=== PATIENT | male | born 1930 | race Caucasian/White ===

== ENCOUNTER 2017-09-03 13:35 | Inpatient (IN) | payer OTHER ==
[2017-09-03] MEDS ORDERED: ONDANSETRON 4 MG/2 ML VIAL ONE (14:04)
[2017-09-03] MEDS ORDERED: ONDANSETRON 4 MG/2 ML VIAL IVPUSH ONE (14:23)
[2017-09-03] MEDS ORDERED: SODIUM CHLORIDE 1,000 ML IV STA (14:23)
[2017-09-03] MEDS ORDERED: DIPHTH,PERTUSS(ACELL),TET 0.5 ML DISP.SYRIN IM ONE (14:25)
[2017-09-03] MEDS ORDERED: morphine CARPU-JECT 2 MG/1 ML DISP.SYRIN IVPUSH ONE (14:32)
[2017-09-03] MEDS ORDERED: morphine CARPU-JECT 10 MG/1 ML DISP.SYRIN ONE (14:35)
--- NOTE | 2017-09-03 14:38 | PDOC ---
History of Present Illness - General Chief Complaint: Injury Stated Complaint: FELL Time Seen by Provider: 09/03/17 13:45 History Source: Patient Exam Limitations: No Limitations - History of Present Illness Initial Comments: 09/03/17 14:33 87-year-old male presents to the ED status post mechanical fall. Patient states was carrying items up wooden steps in his basement when he lost his balance going causing him to fall backwards landing on his left side. Patient states had no LOC but was unable to get up secondary to pain in his left hip. Patient states pulled himself up the steps and called 911. Patient states is on baby aspirin and denies LOC after incident. Patient states also on a beta luis armando which he took this morning. Patient refused morphine in the field and had a BGM of 142. Occurred: reports: just prior to arrival Severity: reports: moderate, severe Pain Location: reports: face, head, lower extremity, upper extremity Method of Injury: Yes: fall Loss of Consciousness: no loss of consciousness Associated Symptoms (Fall): headache, trouble walking Past History - Travel Traveled outside of the country in the last 30 days: No - Past Medical History Allergies/Adverse Reactions: Allergies Allergy/AdvReac Type Severity Reaction Status Date / Time ciprofloxacin [From Cipro] Allergy Severe Swelling Verified 09/03/17 14:00 sulfamethoxazole Allergy Severe Swelling Verified 09/03/17 14:00 [From Bactrim] trimethoprim [From Bactrim] Allergy Severe Swelling Verified 09/03/17 14:00 Home Medications: Ambulatory Orders Amlodipine Besylate 5 mg PO BID 09/03/17 Aspirin 81 mg PO DAILY 09/03/17 Atorvastatin Ca [Lipitor] 40 mg PO HS 09/03/17 Furosemide 20 mg PO BID 09/03/17 Losartan Potassium 50 mg PO BID 09/03/17 Metformin HCl [Metformin HCl ER] 1,000 mg PO BID 09/03/17 Metoprolol Succinate 50 mg PO DAILY 09/03/17 COPD: No Diabetes: Yes HTN: Yes Hypercholesterolemia: Yes - Surgical History Appendectomy: Yes Orthopedic Surgery: Yes (rt hip fx) - Suicide/Smoking/Psychosocial Hx Smoking History: Former smoker Have you smoked in the past 12 months: No If you are a former smoker, when did you quit?: 40 YEARS AGO Information on smoking cessation initiated: No Hx Alcohol Use: No Drug/Substance Use Hx: No Patient Lives Alone: Yes Lives with/in: lives alone Review of Systems - Review of Systems Able to Perform ROS?: Yes Constitutional: No: Symptoms Reported HEENTM: Yes: Symptoms Reported, Eye Pain (left ) Respiratory: No: Symptoms reported Cardiac (ROS): No: Symptoms Reported : No: Symptoms Reported Musculoskeletal: Yes: Joint Pain (left wrist and 1st left finger. left hip). No : Back Pain Integumentary: Yes: Bruising, Erythema, Lumps (left eyebrow) Hematologic/Lymphatic: Yes: See HPI (on baby asa) *Physical Exam - Vital Signs Last Vital Signs Temp Pulse Resp BP Pulse Ox 97.2 F L 61 20 96/57 97 09/03/17 14:00 09/03/17 14:00 09/03/17 14:00 09/03/17 14:00 09/03/17 14:00 - Physical Exam General Appearance: Yes: Nourished, Appropriately Dressed. No: Apparent Distress HEENT: positive: EOMI, SAURAV. negative: Pale Conjunctivae Neck: positive: Supple Respiratory/Chest: positive: Chest Tender (left ribs 2nd-8th), Lungs Clear, Normal Breath Sounds. negative: Respiratory Distress, Accessory Muscle Use Cardiovascular: positive: Regular Rhythm, Regular Rate (nsr 62). negative: Murmur Gastrointestinal/Abdominal: positive: Soft. negative: Tenderness Musculoskeletal: negative: CVA Tenderness, Vertebral Tenderness Extremity: positive: Normal Capillary Refill, Tender (over lateral aspect of left hip/ proximal femur). negative: Normal Inspection (unable to move lle) Integumentary: positive: Swelling, Ecchymosis (noted large hematoma over left eyebrow with full closure of left upper eyelid. 2), Other (2 cm linear lac below lateral aspect of left eyebrow) Neurologic: positive: Normal Mood/Affect Procedures - Laceration/Wound Repair Left Eye Wound Length: to 2.5 cm Wound Explored: clean Wound's Depth, Shape: superficial, linear Irrigated w/ Saline: Yes Betadine Prep: Yes Wound Repaired With: Dermabond ED Treatment Course - LABORATORY CBC & Chemistry Diagram: 09/03/17 14:30 09/03/17 14:30 - RADIOLOGY Radiology Studies Ordered: Category Date Time Status CERVICAL SPINE CT W/O CONTR [CT] Stat CT Scan 09/03/17 14:[address] W/O CONTRAST [CT] Stat CT Scan 09/03/17 14:[address] WITHOUT CONTRAST [CT] Stat CT Scan 09/03/17 14:23 Ordered CHEST X-RAY PORTABLE* [RAD] Stat Radiology 09/03/17 14:23 Ordered HIP & PELVIS-LEFT [RAD] Stat Radiology 09/03/17 14:25 Ordered RIBS-LEFT SIDE [RAD] Stat Radiology 09/03/17 14:24 Ordered WRIST W/HAND-LEFT* [RAD] Stat Radiology 09/03/17 14:24 Ordered Medical Decision Making - Medical Decision Making 09/03/17 14:43 Pt s/p mechanical fall. Pt with mu;ltiple injuries ( left ribs, left wrist, left eyebrow, and left hip ) . Labs. xrays, and facial, head, and cervical ct ordered. Pt ordered for zofran 4mg ivp for nausea. Pt requesting analgesic. 2 mg mso4 ordered. 09/03/17 15:27 Patient on pelvic x-ray shows a left pubic rami fracture. Patient to be added for non- contrast pelvic CT. 09/03/17 15:29 Rib x-ray shows no signs of gross fracture, pneumothorax, pleural fluid or infiltrate. X-ray of the hand and wrist shows previous distal radial and ulnar surgery. Loss of bone density. Osteoarthritic and erosive arthritic changes noted. No acute fracture visualized. Chest x-ray negative for acute findings. 09/03/17 15:29 Laboratory Tests 09/03/17 09/03/17 14:30 14:30 WBC 14.1 H Hgb 12.4 Hct 39.1 Plt Count 176 Neutrophils % 88.2 H Lymphocytes % 5.6 L Monocytes % 4.5 Eosinophils % 1.1 Basophils % 0.6 PT with INR 12.20 H INR 1.08 09/03/17 16:59 Laboratory Tests 09/03/17 14:30 BUN 52 H Creatinine 2.8 H Random Glucose 137 H Calcium 8.4 L Creatine Kinase 513 H Troponin I < 0.02 Total Protein 5.7 L Albumin 3.4 Patient with normal saline infusing. Laceration repair completed with Dermabond without difficulty. BGM ordered since patient states feels slightly weak 09/03/17 17:03 Laboratory Tests 09/03/17 14:30 Creatine Kinase 513 H Creatine Kinase Index 2.2 CK-MB (CK-2) 11.690 H Troponin I < 0.02 09/03/17 17:37 Laboratory Tests 09/03/17 17:04 POC Glucometer 108.45375 09/03/17 18:17 Laboratory Tests 09/03/17 15:32 Lactic Acid 2.3 H* Elevated lactic acid and white count may be reactive secondary to the injury blood cultures were sent. awaiting urine. Patient states his creatinine level has increased since he has doubled up his Lasix in order to decrease his blood pressure. Spoke to Dr. Porter who was in the hospital will come down shortly to evaluate patient. *DC/Admit/Observation/Transfer Diagnosis at time of Disposition: Pelvic fracture - Discharge Dispostion Admit: Yes - Referrals Referrals: STAFF,NOT ON [Primary Care Provider] - - Patient Instructions - Post Discharge Activity
[2017-09-03 14:41] LABS: BASO % 0.6 % (0-2.0); EOS % 1.1 % (0-4.5); HEMATOCRIT 39.1 % (35.4-49); HEMOGLOBIN 12.4 GM/dL (11.7-16.9); LYMPH % 5.6 % (8-40); MCH 28.7 pg (25.7-33.7); MCHC 31.8 g/dl (32.0-35.9); MEAN CELL VOLUME 90.5 fl (80-96); MEAN PLT VOLUME 7.8 fl (7.5-11.1); MONO % 4.5 % (3.8-10.2); NEUT % 88.2 % (42.8-82.8); PLATELET COUNT 176 K/MM3 (134-434); RBC 4.32 M/mm3 (4.00-5.60); WHITE BLOOD COUNT 14.1 K/mm3 (4.0-10.0)
[2017-09-03 15:07] LABS: ALBUMIN 3.4 g/dl (3.4-5.0); ANION GAP 13 (8-16); BILIRUBIN,TOTAL 0.6 mg/dL (0.2-1.0); BLOOD UREA NITROGEN 52 mg/dL (7-18); CALCIUM 8.4 mg/dL (8.5-10.1); CHLORIDE 107 mmol/L (98-107); CO2 23 mmol/L (21-32); CREATININE 2.8 mg/dL (0.7-1.3); GLUCOSE,RANDOM 137 mg/dL (74-106); POTASSIUM 4.5 mmol/L (3.5-5.1); SGOT/AST 32 U/L (15-37); SGPT/ALT 29 U/L (12-78); SODIUM 143 mmol/L (136-145); TOT PROT 5.7 g/dl (6.4-8.2)
[2017-09-03 15:08] LABS: INR 1.08 (0.82-1.09); PROTHROMBIN TIME (PATIENT) 12.2 SEC (9.98-11.88)
[2017-09-03 15:09] LABS: ALK PHOS 64 U/L (45-117)
--- NOTE | 2017-09-03 17:52 | HP ---
Admitting History and Physical - Admission History of Present Illness: This is an 87 year old male with HTN, HLD, DM, diabetic nephropathy presented to the ED following mechanical fall. Pt lost balance as he was walking up the stairs from his basement and landed backward on his left side. He did hit his L eye sustaining hematoma and swelling, and lacerations. He did not sustain any orbital fractures nor has an visual disturbances. PT was unable to get up due to left hip pain and called 911. Currently, he denies chest pain, palpitations, sob, urinary or bowel issues, abdominal pain, n/v. He does endorse urinary incontinence. History Source: Patient Limitations to Obtaining History: No Limitations - Past Medical History Cardiovascular: Yes: HTN, Hyperlipdemia Endocrine: Yes: Diabetes Mellitus - Past Surgical History Past Surgical History: Yes: Laminectomy (x4, 4 years ago), Prostatectomy (10-12 years ago) - Smoking History Smoking history: Former smoker Have you smoked in the past 12 months: No If you are a former smoker, when did you quit?: 40 YEARS AGO - Alcohol/Substance Use Hx Alcohol Use: No - Social History Usual Living Arrangement: Yes: Alone ADL: Independent Occupation: semi retired doctor History of Recent Travel: No Home Medications - Allergies Allergies/Adverse Reactions: Allergies Allergy/AdvReac Type Severity Reaction Status Date / Time ciprofloxacin [From Cipro] Allergy Severe Swelling Verified 09/03/17 14:00 sulfamethoxazole Allergy Severe Swelling Verified 09/03/17 14:00 [From Bactrim] trimethoprim [From Bactrim] Allergy Severe Swelling Verified 09/03/17 14:00 - Home Medications Home Medications: Ambulatory Orders Amlodipine Besylate 5 mg PO BID 09/03/17 Aspirin 81 mg PO DAILY 09/03/17 Atorvastatin Ca [Lipitor] 40 mg PO HS 09/03/17 Furosemide 20 mg PO BID 09/03/17 Losartan Potassium 50 mg PO BID 09/03/17 Metformin HCl [Metformin HCl ER] 1,000 mg PO BID 09/03/17 Metoprolol Succinate 50 mg PO DAILY 09/03/17 Review of Systems - Review of Systems Constitutional: reports: No Symptoms Eyes: reports: No Symptoms HENT: reports: No Symptoms Neck: reports: No Symptoms Cardiovascular: reports: No Symptoms Respiratory: reports: No Symptoms Gastrointestinal: reports: No Symptoms Genitourinary: reports: No Symptoms Musculoskeletal: reports: Extremity Pain (left pelvis) Integumentary: reports: Bruising (left eye) Neurological: reports: No Symptoms Endocrine: reports: No Symptoms Hematology/Lymphatic: reports: No Symptoms Psychiatric: reports: No Symptoms Physical Examination Vital Signs: Vital Signs Temperature 97.2 F L 09/03/17 14:00 Pulse Rate 73 09/03/17 16:37 Respiratory Rate 20 09/03/17 16:37 Blood Pressure 111/70 09/03/17 16:37 O2 Sat by Pulse Oximetry (%) 97 09/03/17 16:37 Constitutional: Yes: Well Nourished Eyes: Yes: EOM Intact (r and left eye), PERRL (r and left eye), Other (Left eye eccymosis, hematoma, swelling, forehead laceration no bleeding, dermabond) Neck: Yes: Supple Cardiovascular: Yes: Regular Rate and Rhythm, S1, S2 Respiratory: Yes: Regular, CTA Bilaterally Gastrointestinal: Yes: Normal Bowel Sounds, Soft Renal/: Yes: Incontinence Musculoskeletal: Yes: Other (L pelvic tenderness to palpation) Edema: No Integumentary: Yes: Bruising, Erythema Neurological: Yes: Alert, Oriented, Cran Nerves II-XII Intact Psychiatric: Yes: Alert, Oriented Labs: CBC, BMP 09/03/17 14:30 09/03/17 14:30 Imaging - Results X-ray: Report Reviewed (L pelvic ramus fx) Problem List - Problems (1) CKD (chronic kidney disease) Code(s): N18.9 - CHRONIC KIDNEY DISEASE, UNSPECIFIED (2) BACILIO (acute kidney injury) Code(s): N17.9 - ACUTE KIDNEY FAILURE, UNSPECIFIED (3) HTN (hypertension) Code(s): I10 - ESSENTIAL (PRIMARY) HYPERTENSION (4) HLD (hyperlipidemia) Code(s): E78.5 - HYPERLIPIDEMIA, UNSPECIFIED (5) Diabetes Code(s): E11.9 - TYPE 2 DIABETES MELLITUS WITHOUT COMPLICATIONS (6) Pelvic fracture Code(s): S32.9XXA - FRACTURE OF UNSP PARTS OF LUMBOSACRAL SPINE AND PELVIS, INIT Assessment/Plan Assessment: 87 year old male with HTN, HLD, DM II, admitted s/p mechanical fall Plan: 1. Left pelvic ramus fx - D/w ortho, pt also sustain sacral fracture - Partial WBAT - Intractable pain - Morphine/ tylenol prn - Will need rehab placement - PT consult 2. BACILIO on CKD - Pt states baseline cr ~2 - Will obtain Kidney/bladder us - Hold ARB/lasix/metformin - Continue fluids - UA ordered - Urine lytes, urine urea 3. Lactic acidosis - Continue fluids - Recheck in 6 hrs (2300) - Possible due to metformin - Will rule out infectious cause, pt states he has not had any water all day, agrees to UA, refuses straight cath 4. Leukocytosis - Likely reactive, however will need to rule out infectious cause due to elevated lactate - Blood cx sent - Trend 5. HTN - Hold lasix, losartan - Continue metoprolol, norvasc 6. HLD - Statin - Hold ASA 7. DM II - ISS, BGM ACHS 8. DVT ppx - Heparin sq Visit type - Emergency Visit Emergency Visit: Yes Care time: The patient presented to the Emergency Department on the above date and was hospitalized for further evaluation of their emergent condition. - New Patient This patient is new to me today: Yes Date on this admission: 09/03/17 - Critical Care Critical Care patient: No
[2017-09-03] MEDS ORDERED: ACETAMINOPHEN 325 MG TABLET (FP) PO PRN (18:26)
[2017-09-03] MEDS ORDERED: oxyCODONE HCL 5 MG TABLET PO PRN (18:26)
--- NOTE | 2017-09-03 18:40 | CON.ORTH ---
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 co pain to left hand and left hip. hx r sha. hx l DR cedillo. Other injuries being txed by ER. - History Source History Provided By: Patient, Family Member Limitations to Obtaining History: No Limitations - Past Medical History Cardio/Vascular: Yes: HTN, Hyperlipdemia - Past Surgical History Past Surgical History: Yes: Joint Replacement, Laminectomy (x4, 4 years ago) - Alcohol/Substance Use Hx Alcohol Use: No - Smoking History Smoking history: Former smoker Have you smoked in the past 12 months: No If you are a former smoker, when did you quit?: 40 YEARS AGO - Social History ADL: Independent Occupation: semi retired doctor History of Recent Travel: No Home Medications - Allergies Allergies/Adverse Reactions: Allergies Allergy/AdvReac Type Severity Reaction Status Date / Time ciprofloxacin [From Cipro] Allergy Severe Swelling Verified 09/03/17 14:00 sulfamethoxazole Allergy Severe Swelling Verified 09/03/17 14:00 [From Bactrim] trimethoprim [From Bactrim] Allergy Severe Swelling Verified 09/03/17 14:00 - Home Medications Home Medications: Ambulatory Orders Amlodipine Besylate 5 mg PO BID 09/03/17 Aspirin 81 mg PO DAILY 09/03/17 Atorvastatin Ca [Lipitor] 40 mg PO HS 09/03/17 Furosemide 20 mg PO BID 09/03/17 Losartan Potassium 50 mg PO BID 09/03/17 Metformin HCl [Metformin HCl ER] 1,000 mg PO BID 09/03/17 Metoprolol Succinate 50 mg PO DAILY 09/03/17 Physical Exam for Ortho Vital Signs: Vital Signs Temperature 97.2 F L 09/03/17 14:00 Pulse Rate 73 09/03/17 16:37 Respiratory Rate 20 09/03/17 16:37 Blood Pressure 111/70 09/03/17 16:37 O2 Sat by Pulse Oximetry (%) 97 09/03/17 16:37 Labs: CBC, BMP 09/03/17 14:30 09/03/17 14:30 INR, PTT INR 1.08 (0.82-1.09) 09/03/17 14:30 Other Findings/Remarks: Alert oriented. resp unlabored. bruising eye Left hand: Mod edema radial hand. Chronic deformity wrist. healed incisions wrist. tender 2nd 3rd MC. OA throughout Pelvis: Pain with compression on left. Unable to WB. Mild pain with hip rotation. NVI. no calf tend. Imaging - Results X-ray: Image Reviewed Cat Scan: Image Reviewed (xray left hand and wrist: No acute fx or dl. old dr fx with screw. arthritis xray and CT pelvis: Left pelvic ring fx with pubic root and sacrum fx minimally displaced. Intact right sha.) Assessment/Plan 1) Left hand contusion/sprain with possible occult MC fx 2) Left pelvic ring fx Plan: DIscussed dx and tx options with pt and family. Advised observation hand. Advised pain mgt and rehab (PWB) for pelvis. fu as outpatient in office.
[2017-09-03] MEDS: SODIUM CHLORIDE 1,000 ML IV SCH ×2 (19:33→22:38)
[2017-09-03 20:58] LABS: URINE APPEARANCE CLEAR; URINE BILIRUBIN NEGATIVE (NEGATIVE); URINE BLOOD NEGATIVE (NEGATIVE); URINE COLOR YELLOW; URINE GLUCOSE (UA) NEGATIVE (NEGATIVE); URINE KETONE TRACE (NEGATIVE); URINE LEUK ESTERASE NEGATIVE (NEGATIVE); URINE NITRITE NEGATIVE (NEGATIVE); URINE PROTEIN NEGATIVE (NEGATIVE); URINE UROBILINOGEN NEGATIVE mg/dL (0.2-1.0)
[2017-09-03] MEDS ORDERED: INSULIN (NOVOLOG) ASPART 100 UNITS/ML 10ML VIAL ONE ×2 (22:35→23:58)
[2017-09-03] MEDS: amLODIPine BESYLATE 5 MG TABLET (FP) PO SCH (22:37)
[2017-09-03] MEDS: ATORVASTATIN CA 40 MG TABLET (FP) PO SCH (22:37)
[2017-09-03] MEDS: INSULIN DETEMIR 100 UNITS/ML MDV SQ SCH (22:37)
[2017-09-03] MEDS: INSULIN SLIDING SCALE (NOVOLOG) 1 VIAL SQ SCH (22:37)
[2017-09-03] MEDS: METOPROLOL SUCCINATE 50 MG TAB.SR.24H (FP) PO SCH (23:00)
[2017-09-03] MEDS ORDERED: SODIUM CHLORIDE 1,000 ML IV SCH (23:42)
[2017-09-03] MEDS ORDERED: INSULIN (NOVOLOG) ASPART 100 UNITS/ML 10ML VIAL SQ ONE (23:48)
[2017-09-04] MEDS: INSULIN SLIDING SCALE (NOVOLOG) 1 VIAL SQ SCH ×5 (00:01→22:50)
--- NOTE | 2017-09-04 00:30 | HOSP ---
Physical Examination Vital Signs: Vital Signs Temperature 97.2 F L 09/03/17 14:00 Pulse Rate 70 09/03/17 20:40 Respiratory Rate 20 09/03/17 20:40 Blood Pressure 116/68 09/03/17 20:40 O2 Sat by Pulse Oximetry (%) 97 09/03/17 20:40 Labs: CBC, BMP 09/03/17 14:30 09/03/17 14:30 Hospitalist Encounter Assessment: Nursing supervisor sewing department called and reports patient and patients family request to speak to a provider in regards to his Insulin sliding scale. When speaking to the patient he reports that he has a different coverage for his novolog and it varies throughout the day. Patient wanted his BGM checked because he had food that contained high amounts of sugar. I ordered a stat BGM and glucose was 179. Patient reports he takes 3 units when it's around that range. 3 units of Insulin given and repeat BGM was ordered for 03:00. I Spoke to the nurse and requested she call me with the repeat glucose level at 03:00. Patient's lab revealed an elevated repeat lactic of 2.5. Fluids were increased to 125mls/hr and repeat lactic at 01:00. Will Follow up Visit type - Emergency Visit Emergency Visit: Yes ED Registration Date: 09/03/17 Care time: The patient presented to the Emergency Department on the above date and was hospitalized for further evaluation of their emergent condition. - New Patient This patient is new to me today: Yes Date on this admission: 09/03/17 - Critical Care Critical Care patient: No
[2017-09-04] MEDS: morphine CARPU-JECT 10 MG/1 ML DISP.SYRIN IVPUSH PRN ×2 (00:39→04:28)
[2017-09-04 01:28] VITALS: BMI 25.8
[2017-09-04] MEDS: INSULIN DETEMIR 100 UNITS/ML MDV SQ SCH ×2 (06:36→23:25)
[2017-09-04 08:15] LABS: BASO % 0.5 % (0-2.0); EOS % 3.2 % (0-4.5); HEMATOCRIT 36.2 % (35.4-49); HEMOGLOBIN 11.7 GM/dL (11.7-16.9); LYMPH % 6.5 % (8-40); MCH 29.2 pg (25.7-33.7); MCHC 32.2 g/dl (32.0-35.9); MEAN CELL VOLUME 90.6 fl (80-96); MEAN PLT VOLUME 8.2 fl (7.5-11.1); MONO % 8.9 % (3.8-10.2); NEUT % 80.9 % (42.8-82.8); PLATELET COUNT 159 K/MM3 (134-434); RDW 14.1 % (11.9-15.9); WHITE BLOOD COUNT 11.5 K/mm3 (4.0-10.0)
[2017-09-04 08:56] LABS: ALBUMIN 3.4 g/dl (3.4-5.0); ANION GAP 6 (8-16); BLOOD UREA NITROGEN 56 mg/dL (7-18); CALCIUM 7.8 mg/dL (8.5-10.1); CHLORIDE 106 mmol/L (98-107); CO2 26 mmol/L (21-32); GLUCOSE,RANDOM 125 mg/dL (74-106); MAGNESIUM 2.3 mg/dL (1.8-2.4); POTASSIUM 4.9 mmol/L (3.5-5.1); SODIUM 138 mmol/L (136-145)
[2017-09-04 08:59] LABS: ALK PHOS 59 U/L (45-117); BILIRUBIN,TOTAL 0.9 mg/dL (0.2-1.0); SGOT/AST 36 U/L (15-37); SGPT/ALT 28 U/L (12-78); TOT PROT 5.5 g/dl (6.4-8.2)
[2017-09-04] MEDS ORDERED: PT OWN MED DRAWER 7, Y5N ONE (10:30)
[2017-09-04] MEDS: amLODIPine BESYLATE 5 MG TABLET (FP) PO SCH ×2 (11:13→23:24)
[2017-09-04] MEDS: METOPROLOL SUCCINATE 50 MG TAB.SR.24H (FP) PO SCH (11:13)
--- NOTE | 2017-09-04 14:19 | PN ---
Physical Exam: SUBJECTIVE: Patient seen and examined. He complaints of pain, unable to find a comfortable position, wants to stand and sit up. OBJECTIVE: Vital Signs Period Temp Pulse Resp BP Sys/Partida Pulse Ox Last 24 Hr 97.9 F-98.8 F 61-99 18-20 103-128/61-98 91-98 PE Neuro: alert, awake, cn 2-12 intact HEENT: L orbital hematoma, ecchymosis, swelling down, PERRLA Pulm: CTAB CV: s1 s2 rrr no mrg Abd: s nt nd + bs Ext: L hand swelling, palm hematoma, Msk: pelvic tenderness Laboratory Results - last 24 hr 09/04/17 09/04/17 09/04/17 00:55 01:44 04:30 WBC RBC Hgb Hct MCV MCH MCHC RDW Plt Count MPV Neutrophils % Lymphocytes % Monocytes % Eosinophils % Basophils % PT with INR INR Sodium Potassium Chloride Carbon Dioxide Anion Gap BUN Creatinine Creat Clearance w eGFR POC Glucometer 132 Random Glucose Lactic Acid 2.4 H* 1.4 Calcium Phosphorus Magnesium Total Bilirubin AST ALT Alkaline Phosphatase Creatine Kinase Creatine Kinase Index CK-MB (CK-2) Troponin I Total Protein Albumin Urine Color Urine Appearance Urine pH Ur Specific [place] Urine Protein Urine Glucose (UA) Urine Ketones Urine Blood Urine Nitrite Urine Bilirubin Urine Urobilinogen Ur Leukocyte Esterase Ur Random Sodium Ur Random Potassium Ur Random Chloride Ur Random Urea Nitrogn Blood Type Antibody Screen 09/04/17 09/04/17 09/04/17 06:31 07:30 07:30 WBC 11.5 H RBC 4.00 Hgb 11.7 Hct 36.2 MCV 90.6 MCH 29.2 MCHC 32.2 RDW 14.1 Plt Count 159 MPV 8.2 Neutrophils % 80.9 Lymphocytes % 6.5 L Monocytes % 8.9 D Eosinophils % 3.2 D Basophils % 0.5 PT with INR INR Sodium 138 Potassium 4.9 Chloride 106 Carbon Dioxide 26 Anion Gap 6 L BUN 56 H Creatinine 3.0 H Creat Clearance w eGFR 19.94 POC Glucometer 138 Random Glucose 125 H Lactic Acid Calcium 7.8 L Phosphorus 4.0 Magnesium 2.3 Total Bilirubin 0.9 D AST 36 ALT 28 Alkaline Phosphatase 59 Creatine Kinase Creatine Kinase Index CK-MB (CK-2) Troponin I Total Protein 5.5 L Albumin 3.4 Urine Color Urine Appearance Urine pH Ur Specific [place] Urine Protein Urine Glucose (UA) Urine Ketones Urine Blood Urine Nitrite Urine Bilirubin Urine Urobilinogen Ur Leukocyte Esterase Ur Random Sodium Ur Random Potassium Ur Random Chloride Ur Random Urea Nitrogn Blood Type Antibody Screen 09/04/17 09/04/17 07:30 11:10 WBC RBC Hgb Hct MCV MCH MCHC RDW Plt Count MPV Neutrophils % Lymphocytes % Monocytes % Eosinophils % Basophils % PT with INR INR Sodium Potassium Chloride Carbon Dioxide Anion Gap BUN Creatinine Creat Clearance w eGFR POC Glucometer 140 Random Glucose Lactic Acid Calcium Phosphorus Magnesium Total Bilirubin AST ALT Alkaline Phosphatase Creatine Kinase 858 H Creatine Kinase Index 0.8 CK-MB (CK-2) 7.624 H Troponin I Total Protein Albumin Urine Color Urine Appearance Urine pH Ur Specific [place] Urine Protein Urine Glucose (UA) Urine Ketones Urine Blood Urine Nitrite Urine Bilirubin Urine Urobilinogen Ur Leukocyte Esterase Ur Random Sodium Ur Random Potassium Ur Random Chloride Ur Random Urea Nitrogn Blood Type Antibody Screen Active Medications Generic Name Dose Route Start Last Admin Trade Name Freq PRN Reason Stop Dose Admin Acetaminophen 650 mg 09/03/17 18:26 Tylenol - PO Q4H PRN FEVER OR PAIN Amlodipine Besylate 5 mg 09/03/17 22:00 09/04/17 11:13 Norvasc - PO 5 mg BID [facility] Administration Atorvastatin Calcium 40 mg 09/03/17 22:00 09/03/17 22:37 Lipitor - PO 40 mg HS [facility] Administration Heparin Sodium (Porcine) 5,000 unit 09/04/17 22:00 Heparin - SQ TID [facility] Insulin Aspart 1 vial 09/04/17 11:18 Novolog Vial Sliding Scale - SQ ACHS [facility] Protocol Insulin Detemir 10 units 09/03/17 22:00 09/03/17 22:37 Levemir Vial SQ 10 units HS [facility] Administration Insulin Detemir 5 units 09/04/17 07:00 09/04/17 06:36 Levemir Vial SQ 5 units AM [facility] Administration Metoprolol Succinate 50 mg 09/04/17 10:00 09/04/17 11:13 Toprol Xl - PO 50 mg DAILY [facility] Administration Morphine Sulfate 2 mg 09/03/17 18:26 09/04/17 04:28 Morphine Injection - IVPUSH 2 mg Q4H PRN Administration PAIN Oxycodone HCl 5 mg 09/03/17 18:26 Roxicodone - PO Q6H PRN PAIN Assessment: 87 year old male with HTN, HLD, DM II admitted s/p mechanical fall Plan: 1. Left pelvic ramus and sacral fracture - Partial WBAT - SNF placement - PT consult 2. BACILIO on CKD - Cr worsening - Unable to void, mijares placed - Echogenic kidneys noted on US, no hydro - Hold ARB/lasix/metformin - Urine cr pending for Feurea calculation - Renal consulted 3. Lactic acidosis - Resolved - Fluids held due to retention - Cultures pending 4. Leukocytosis - Improving 5. HTN - BP stable - Hold lasix, losartan - Continue metoprolol, norvasc 6. HLD - Statin - Hold ASA 7. DM II - Levemir q am, hs - ISS, BGM ACHS 8. DVT ppx Problem List - Problems (1) CKD (chronic kidney disease) Code(s): N18.9 - CHRONIC KIDNEY DISEASE, UNSPECIFIED (2) BACILIO (acute kidney injury) Code(s): N17.9 - ACUTE KIDNEY FAILURE, UNSPECIFIED (3) HTN (hypertension) Code(s): I10 - ESSENTIAL (PRIMARY) HYPERTENSION (4) HLD (hyperlipidemia) Code(s): E78.5 - HYPERLIPIDEMIA, UNSPECIFIED (5) Diabetes Code(s): E11.9 - TYPE 2 DIABETES MELLITUS WITHOUT COMPLICATIONS (6) Pelvic fracture Code(s): S32.9XXA - FRACTURE OF UNSP PARTS OF LUMBOSACRAL SPINE AND PELVIS, INIT Visit type - Emergency Visit Emergency Visit: Yes ED Registration Date: 09/03/17 Care time: The patient presented to the Emergency Department on the above date and was hospitalized for further evaluation of their emergent condition. - New Patient This patient is new to me today: No - Critical Care Critical Care patient: No
--- NOTE | 2017-09-04 16:57 | CONSULT ---
Consult Consult Specialty:: Nephrology Reason for Consultation:: CKD - History of Present Illness Chief Complaint: presented s/p fall History of Present Illness: Pt is an 87 year old male with pmhx of CKD, DM, and HTN who presents to the ER s /p fall. He fell at home while carrying things up from his basement. I was called scar evaluate him for elevated creatinine. He says he has history of CKD and that his creatinine ranges between 2 and 3. 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 He has history of DM for the last 12 years. He denies nsaid use. He was found to have urinary retention an a mijares was placed. He denies shortness of breath. He says he feels thirsty. - History Source History Provided By: Patient, Medical Record - Past Medical History Cardio/Vascular: Yes: HTN, Hyperlipdemia Renal/: Yes: Renal Inusuff Endocrine: Yes: Diabetes Mellitus - Past Surgical History Past Surgical History: Yes: Laminectomy (x4, 4 years ago), Prostatectomy (10-12 years ago) - Alcohol/Substance Use Hx Alcohol Use: No - Smoking History Smoking history: Former smoker Have you smoked in the past 12 months: No If you are a former smoker, when did you quit?: 40 YEARS AGO - Social History ADL: Independent Occupation: semi retired doctor History of Recent Travel: No Home Medications - Allergies Allergies/Adverse Reactions: Allergies Allergy/AdvReac Type Severity Reaction Status Date / Time ciprofloxacin [From Cipro] Allergy Severe Swelling Verified 09/03/17 14:00 sulfamethoxazole Allergy Severe Swelling Verified 09/03/17 14:00 [From Bactrim] trimethoprim [From Bactrim] Allergy Severe Swelling Verified 09/03/17 14:00 - Home Medications Home Medications: Ambulatory Orders Amlodipine Besylate 5 mg PO BID 09/03/17 Aspirin 81 mg PO DAILY 09/03/17 Atorvastatin Ca [Lipitor] 40 mg PO HS 09/03/17 Furosemide 20 mg PO BID 09/03/17 Insulin Glargine,Hum.rec.anlog [Lantus] 10 units SQ BID 09/03/17 Losartan Potassium 50 mg PO BID 09/03/17 Metformin HCl [Metformin HCl ER] 1,000 mg PO BID 09/03/17 Metoprolol Succinate 50 mg PO DAILY 09/03/17 Family Disease History - Family Disease History Family History: Denies Review of Systems - Review of Systems Constitutional: reports: Malaise Eyes: reports: No Symptoms Neck: reports: No Symptoms Cardiovascular: reports: No Symptoms Respiratory: reports: No Symptoms Gastrointestinal: reports: No Symptoms Genitourinary: reports: Other (mijares) Musculoskeletal: reports: Other (left arm and hip pain) Neurological: reports: No Symptoms Endocrine: reports: No Symptoms Hematology/Lymphatic: reports: No Symptoms Psychiatric: reports: No Symptoms Physical Exam Vital Signs: Vital Signs Temperature 98.6 F 09/04/17 14:00 Pulse Rate 93 H 09/04/17 14:00 Respiratory Rate 09/04/17 14:00 Blood Pressure 118/81 09/04/17 14:00 O2 Sat by Pulse Oximetry (%) 91 L 09/04/17 09:00 Constitutional: Yes: Calm HENT: Yes: Other (facial trauma) Neck: Yes: Supple Cardiovascular: Yes: S1, S2 Respiratory: Yes: Regular Gastrointestinal: Yes: Soft Renal/: Yes: Mijares Present Musculoskeletal: Yes: Muscle Weakness Edema: No Integumentary: Yes: Bruising Neurological: Yes: Oriented Psychiatric: Yes: Oriented Labs: CBC, BMP 09/04/17 07:30 09/04/17 07:30 Laboratory Tests 09/03/17 09/03/17 09/03/17 14:30 14:30 14:30 WBC 14.1 H Hgb 12.4 Plt Count 176 INR 1.08 Sodium Potassium Chloride Carbon Dioxide Anion Gap BUN 52 H Creatinine 2.8 H Lactic Acid Creatine Kinase 513 H Urine Protein Urine Blood 09/03/17 09/04/17 09/04/17 20:43 00:55 04:30 WBC Hgb Plt Count INR Sodium Potassium Chloride Carbon Dioxide Anion Gap BUN Creatinine Lactic Acid 2.4 H* 1.4 Creatine Kinase Urine Protein Negative Urine Blood Negative 09/04/17 09/04/17 09/04/17 07:30 07:30 07:30 WBC 11.5 H Hgb 11.7 Plt Count 159 INR Sodium 138 Potassium 4.9 Chloride 106 Carbon Dioxide 26 Anion Gap 6 L BUN 56 H Creatinine 3.0 H Lactic Acid Creatine Kinase 858 H Urine Protein Urine Blood Imaging - Results Chest X-ray: Report Reviewed Cat Scan: Report Reviewed Problem List - Problems (1) CKD (chronic kidney disease) Code(s): N18.9 - CHRONIC KIDNEY DISEASE, UNSPECIFIED (2) Diabetes Code(s): E11.9 - TYPE 2 DIABETES MELLITUS WITHOUT COMPLICATIONS (3) HLD (hyperlipidemia) Code(s): E78.5 - HYPERLIPIDEMIA, UNSPECIFIED (4) HTN (hypertension) Code(s): I10 - ESSENTIAL (PRIMARY) HYPERTENSION (5) Pelvic fracture Code(s): S32.9XXA - FRACTURE OF UNSP PARTS OF LUMBOSACRAL SPINE AND PELVIS, INIT Assessment/Plan Current Medications Generic Name Dose Route Start Last Admin Trade Name Freq PRN Reason Stop Dose Admin Acetaminophen 650 mg 09/03/17 18:26 Tylenol - PO Q4H PRN FEVER OR PAIN Amlodipine Besylate 5 mg 09/03/17 22:00 09/04/17 11:13 Norvasc - PO 5 mg BID [facility] Administration Atorvastatin Calcium 40 mg 09/03/17 22:00 09/03/17 22:37 Lipitor - PO 40 mg HS [facility] Administration Heparin Sodium (Porcine) 5,000 unit 09/04/17 22:00 Heparin - SQ TID [facility] Sodium Chloride 1,000 mls @ 42 mls/hr 09/04/17 17:00 1/2 Normal Saline IV ASDIR [facility] Insulin Aspart 1 vial 09/04/17 11:18 09/04/17 17:05 Novolog Vial Sliding Scale - SQ Not Given ACHS [facility] Protocol Insulin Detemir 10 units 09/03/17 22:00 09/03/17 22:37 Levemir Vial SQ 10 units HS [facility] Administration Insulin Detemir 5 units 09/04/17 07:00 09/04/17 06:36 Levemir Vial SQ 5 units AM [facility] Administration Metoprolol Succinate 50 mg 09/04/17 10:00 09/04/17 11:13 Toprol Xl - PO 50 mg DAILY [facility] Administration Morphine Sulfate 2 mg 09/03/17 18:26 09/04/17 04:28 Morphine Injection - IVPUSH 2 mg Q4H PRN Administration PAIN Oxycodone HCl 5 mg 09/03/17 18:26 Roxicodone - PO Q6H PRN PAIN Laboratory Tests 09/03/17 20:43 Urine Protein Negative Urine Blood Negative Impression 1. CKD 2. urinary retention 3. rhabdo 4. s/p fall 5. DM 6. HTN 7. chol 8. lactic acidosis Plan - will start gentle hydration - repeat labs in am - monitor urine output - fena is 0.3 which is consistent with prerenal disease - would need to obtain outpt records - ua is negative for blood or protein - kidney appear echogenic on ultrasound - repeat cpk in am - would not restart metformin - discussed with medical team Dr Shelton
[2017-09-04] MEDS ORDERED: SODIUM CHLORIDE 0.45% 1,000 ML IV SCH (17:00)
[2017-09-04] MEDS: SODIUM CHLORIDE 0.45% 1,000 ML IV SCH (20:38)
[2017-09-04] MEDS: ATORVASTATIN CA 40 MG TABLET (FP) PO SCH (23:25)
[2017-09-04] MEDS: HEPARIN NA (PORCINE) 5,000 UNITS/ML 1ML VIAL SQ SCH (23:26)
[2017-09-05] MEDS: morphine CARPU-JECT 10 MG/1 ML DISP.SYRIN IVPUSH PRN ×2 (04:34→21:16)
[2017-09-05] MEDS: HEPARIN NA (PORCINE) 5,000 UNITS/ML 1ML VIAL SQ SCH ×3 (05:49→21:15)
[2017-09-05] MEDS: INSULIN SLIDING SCALE (NOVOLOG) 1 VIAL SQ SCH ×4 (06:04→21:14)
[2017-09-05] MEDS: INSULIN DETEMIR 100 UNITS/ML MDV SQ SCH ×2 (06:30→21:13)
[2017-09-05 07:33] LABS: HEMATOCRIT 32.7 % (35.4-49); HEMOGLOBIN 10.6 GM/dL (11.7-16.9); MCH 29.3 pg (25.7-33.7); MCHC 32.5 g/dl (32.0-35.9); MEAN CELL VOLUME 89.9 fl (80-96); MEAN PLT VOLUME 8.5 fl (7.5-11.1); PLATELET COUNT 126 K/MM3 (134-434); RBC 3.64 M/mm3 (4.00-5.60); WHITE BLOOD COUNT 12.4 K/mm3 (4.0-10.0)
--- NOTE | 2017-09-05 07:54 | PN ---
Progress Note, Physician History of Present Illness: resting in bed. pain worse with movement. comfortable at rest - Current Medication List Current Medications: Active Medications Acetaminophen (Tylenol -) 650 mg PO Q4H PRN PRN Reason: FEVER OR PAIN Amlodipine Besylate (Norvasc -) 5 mg PO BID [facility] Last Admin: 09/04/17 23:24 Dose: 5 mg Atorvastatin Calcium (Lipitor -) 40 mg PO HS [facility] Last Admin: 09/04/17 23:25 Dose: 40 mg Heparin Sodium (Porcine) (Heparin -) 5,000 unit SQ TID [facility] Last Admin: 09/05/17 05:49 Dose: Not Given Sodium Chloride (1/2 Normal Saline) 1,000 mls @ 50 mls/hr IV ASDIR [facility] Last Admin: 09/04/17 20:38 Dose: 50 mls/hr Insulin Aspart (Novolog Vial Sliding Scale -) 1 vial SQ ACHS [facility] PRN Reason: Protocol Last Admin: 09/05/17 06:04 Dose: Not Given Insulin Detemir (Levemir Vial) 10 units SQ HS [facility] Last Admin: 09/04/17 23:25 Dose: 10 units Insulin Detemir (Levemir Vial) 5 units SQ AM [facility] Last Admin: 09/05/17 06:30 Dose: 5 units Metoprolol Succinate (Toprol Xl -) 50 mg PO DAILY [facility] Last Admin: 09/04/17 11:13 Dose: 50 mg Morphine Sulfate (Morphine Injection -) 2 mg IVPUSH Q4H PRN PRN Reason: PAIN Last Admin: 09/05/17 04:34 Dose: 2 mg Oxycodone HCl (Roxicodone -) 5 mg PO Q6H PRN PRN Reason: PAIN - Objective Vital Signs: Vital Signs Temperature 99.4 F 09/04/17 22:00 Pulse Rate 100 H 09/04/17 22:00 Respiratory Rate 18 09/04/17 22:00 Blood Pressure 111/66 09/04/17 22:00 O2 Sat by Pulse Oximetry (%) 92 L 09/04/17 21:00 Constitutional: Yes: Well Nourished, No Distress Musculoskeletal: Yes: Other (Left hand: Mild edema of the hand. Mild tenderness over the 2-3MC. chronic wrist deformity. NVID Pelvis: Pain with motion of the left hip. Lower extremities non-tender. Neg homans sign. Calfs non tender) Labs: CBC, BMP 09/05/17 07:00 INR, PTT INR 1.08 (0.82-1.09) 09/03/17 14:30 Assessment/Plan #1 Left hand contusion #2 Left pelvic ring fracture -PT, PWB -Pain control -Dvt prophylaxis -F/u as outpatient
[2017-09-05 08:06] LABS: ANION GAP 10 (8-16); BLOOD UREA NITROGEN 48 mg/dL (7-18); CALCIUM 7.8 mg/dL (8.5-10.1); CHLORIDE 105 mmol/L (98-107); CO2 22 mmol/L (21-32); GLUCOSE,RANDOM 97 mg/dL (74-106); POTASSIUM 4.5 mmol/L (3.5-5.1); SODIUM 137 mmol/L (136-145)
[2017-09-05 08:07] LABS: CREATININE 2.6 mg/dL (0.7-1.3)
[2017-09-05] MEDS: METOPROLOL SUCCINATE 50 MG TAB.SR.24H (FP) PO SCH (10:31)
[2017-09-05] MEDS: amLODIPine BESYLATE 5 MG TABLET (FP) PO SCH ×2 (10:32→21:14)
[2017-09-05] MEDS ORDERED: INSULIN (NOVOLOG) ASPART 100 UNITS/ML 10ML VIAL ONE ×2 (11:11→21:10)
--- NOTE | 2017-09-05 12:47 | PN ---
Physical Exam: SUBJECTIVE: Patient seen and examined. He has no appetite, he sat up with PT, he wishes he could do more, pain with movement OBJECTIVE: Vital Signs Period Temp Pulse Resp BP Sys/Partida Pulse Ox Last 24 Hr 97.9 F-99.4 F 80-104 18-20 104-128/60-81 92 PE Neuro: alert, awake, cn 2-12 intact HEENT: L orbital hematoma, ecchymosis, Pulm: CTAB CV: s1 s2 rrr no mrg Abd: s nt nd + bs Ext: L hand swelling, palm hematoma- improving Msk: pelvic tenderness Laboratory Results - last 24 hr 09/05/17 09/05/17 09/05/17 07:00 07:00 07:00 WBC 12.4 H RBC 3.64 L Hgb 10.6 L Hct 32.7 L MCV 89.9 MCH 29.3 MCHC 32.5 RDW 14.0 Plt Count 126 L D MPV 8.5 Sodium 137 Potassium 4.5 Chloride 105 Carbon Dioxide 22 Anion Gap 10 BUN 48 H Creatinine 2.6 H POC Glucometer Random Glucose 97 D Calcium 7.8 L Creatine Kinase 698 H Creatine Kinase Index 0.5 CK-MB (CK-2) 3.973 H Ur Random Sodium Ur Random Potassium Ur Random Chloride Ur Random Urea Nitrogn Urine Creatinine Active Medications Generic Name Dose Route Start Last Admin Trade Name Freq PRN Reason Stop Dose Admin Acetaminophen 650 mg 09/03/17 18:26 Tylenol - PO Q4H PRN FEVER OR PAIN Amlodipine Besylate 5 mg 09/03/17 22:00 09/05/17 10:32 Norvasc - PO 5 mg BID [facility] Administration Atorvastatin Calcium 40 mg 09/03/17 22:00 09/04/17 23:25 Lipitor - PO 40 mg HS [facility] Administration Heparin Sodium (Porcine) 5,000 unit 09/04/17 22:00 09/05/17 05:49 Heparin - SQ Not Given TID [facility] Sodium Chloride 1,000 mls @ 50 mls/hr 09/04/17 18:35 09/04/17 20:38 1/2 Normal Saline IV 50 mls/hr ASDIR [facility] Administration Insulin Aspart 1 vial 09/04/17 11:18 09/05/17 11:45 Novolog Vial Sliding Scale - SQ Not Given ACHS [facility] Protocol Insulin Detemir 10 units 09/03/17 22:00 09/04/17 23:25 Levemir Vial SQ 10 units HS [facility] Administration Insulin Detemir 5 units 09/04/17 07:00 09/05/17 06:30 Levemir Vial SQ 5 units AM [facility] Administration Metoprolol Succinate 50 mg 09/04/17 10:00 09/05/17 10:31 Toprol Xl - PO 50 mg DAILY [facility] Administration Morphine Sulfate 2 mg 09/03/17 18:26 09/05/17 04:34 Morphine Injection - IVPUSH 2 mg Q4H PRN Administration PAIN Oxycodone HCl 5 mg 09/03/17 18:26 Roxicodone - PO Q6H PRN PAIN Assessment: 87 year old male with HTN, HLD, DM II admitted s/p mechanical fall Plan: 1. Left pelvic ramus and sacral fracture - Partial WBAT - SNF placement - PT daily 2. BACILIO on CKD - Appears pre renal - Cr decreasing - Maintain mijares - Hold ARB/lasix - Do not restart metformin - Continue 1/2 NS 50cc/hr 3. Lactic acidosis - Resolved 4. Leukocytosis - Mildly elevated, possible pain related - Cultures negative - If continues to rise will obtain cxr 5. HTN - Continue metoprolol, norvasc - Hold lasix, losartan 6. HLD - Statin - Hold ASA 7. DM II - Levemir q am, hs - ISS, BGM ACHS 8. DVT ppx - Heparin sq 9. Rhabdomyolysis - CPK deceasing - Continue fluids Problem List - Problems (1) CKD (chronic kidney disease) Code(s): N18.9 - CHRONIC KIDNEY DISEASE, UNSPECIFIED (2) BACILIO (acute kidney injury) Code(s): N17.9 - ACUTE KIDNEY FAILURE, UNSPECIFIED (3) HTN (hypertension) Code(s): I10 - ESSENTIAL (PRIMARY) HYPERTENSION (4) HLD (hyperlipidemia) Code(s): E78.5 - HYPERLIPIDEMIA, UNSPECIFIED (5) Diabetes Code(s): E11.9 - TYPE 2 DIABETES MELLITUS WITHOUT COMPLICATIONS (6) Pelvic fracture Code(s): S32.9XXA - FRACTURE OF UNSP PARTS OF LUMBOSACRAL SPINE AND PELVIS, INIT Visit type - Emergency Visit Emergency Visit: Yes ED Registration Date: 09/03/17 Care time: The patient presented to the Emergency Department on the above date and was hospitalized for further evaluation of their emergent condition. - New Patient This patient is new to me today: No - Critical Care Critical Care patient: No
[2017-09-05] MEDS: POLYETHYLENE GLYCOL 3350 119 GM BTL PO SCH (14:34)
--- NOTE | 2017-09-05 14:55 | PN ---
Progress Note, Physician History of Present Illness: Pt seen and examined at bedside. He is awake and alert. He complains of hip pain. - Current Medication List Current Medications: Active Medications Acetaminophen (Tylenol -) 650 mg PO Q4H PRN PRN Reason: FEVER OR PAIN Amlodipine Besylate (Norvasc -) 5 mg PO BID [facility] Last Admin: 09/05/17 10:32 Dose: 5 mg Atorvastatin Calcium (Lipitor -) 40 mg PO HS [facility] Last Admin: 09/04/17 23:25 Dose: 40 mg Fluticasone Propionate (Flonase -) 1 spray NS DAILY [facility] Heparin Sodium (Porcine) (Heparin -) 5,000 unit SQ TID [facility] Last Admin: 09/05/17 14:35 Dose: 5,000 unit Sodium Chloride (1/2 Normal Saline) 1,000 mls @ 50 mls/hr IV ASDIR [facility] Last Admin: 09/04/17 20:38 Dose: 50 mls/hr Insulin Aspart (Novolog Vial Sliding Scale -) 1 vial SQ ACHS [facility] PRN Reason: Protocol Last Admin: 09/05/17 11:45 Dose: Not Given Insulin Detemir (Levemir Vial) 10 units SQ HS [facility] Last Admin: 09/04/17 23:25 Dose: 10 units Insulin Detemir (Levemir Vial) 5 units SQ AM [facility] Last Admin: 09/05/17 06:30 Dose: 5 units Metoprolol Succinate (Toprol Xl -) 50 mg PO DAILY [facility] Last Admin: 09/05/17 10:31 Dose: 50 mg Morphine Sulfate (Morphine Injection -) 2 mg IVPUSH Q4H PRN PRN Reason: PAIN Last Admin: 09/05/17 04:34 Dose: 2 mg Oxycodone HCl (Roxicodone -) 5 mg PO Q6H PRN PRN Reason: PAIN Polyethylene Glycol (Miralax (For Daily Use) -) 17 gm PO DAILY [facility] Last Admin: 09/05/17 14:34 Dose: 17 gm - Objective Vital Signs: Vital Signs Temperature 97.9 F 09/05/17 08:00 Pulse Rate 81 09/05/17 08:00 Respiratory Rate 18 09/05/17 08:00 Blood Pressure 110/62 09/05/17 08:00 O2 Sat by Pulse Oximetry (%) 92 L 09/04/17 21:00 Constitutional: Yes: Calm Neck: Yes: Supple Cardiovascular: Yes: S1, S2 Respiratory: Yes: CTA Bilaterally Gastrointestinal: Yes: Soft Genitourinary: Yes: Oliver Present Musculoskeletal: Yes: Back Pain, Joint Stiffness Edema: No Neurological: Yes: Oriented Psychiatric: Yes: Oriented Labs: CBC, BMP 09/05/17 07:00 09/05/17 07:00 INR, PTT INR 1.08 (0.82-1.09) 09/03/17 14:30 Problem List - Problems (1) CKD (chronic kidney disease) Code(s): N18.9 - CHRONIC KIDNEY DISEASE, UNSPECIFIED (2) Diabetes Code(s): E11.9 - TYPE 2 DIABETES MELLITUS WITHOUT COMPLICATIONS (3) HLD (hyperlipidemia) Code(s): E78.5 - HYPERLIPIDEMIA, UNSPECIFIED (4) HTN (hypertension) Code(s): I10 - ESSENTIAL (PRIMARY) HYPERTENSION (5) Pelvic fracture Code(s): S32.9XXA - FRACTURE OF UNSP PARTS OF LUMBOSACRAL SPINE AND PELVIS, INIT Assessment/Plan Current Medications Generic Name Dose Route Start Last Admin Trade Name Freq PRN Reason Stop Dose Admin Acetaminophen 650 mg 09/03/17 18:26 Tylenol - PO Q4H PRN FEVER OR PAIN Amlodipine Besylate 5 mg 09/03/17 22:00 09/05/17 10:32 Norvasc - PO 5 mg BID [facility] Administration Atorvastatin Calcium 40 mg 09/03/17 22:00 09/04/17 23:25 Lipitor - PO 40 mg HS [facility] Administration Fluticasone Propionate 1 spray 09/05/17 13:30 Flonase - NS DAILY [facility] Heparin Sodium (Porcine) 5,000 unit 09/04/17 22:00 09/05/17 14:35 Heparin - SQ 5,000 unit TID [facility] Administration Sodium Chloride 1,000 mls @ 50 mls/hr 09/04/17 18:35 09/04/17 20:38 1/2 Normal Saline IV 50 mls/hr ASDIR [facility] Administration Insulin Aspart 1 vial 09/04/17 11:18 09/05/17 11:45 Novolog Vial Sliding Scale - SQ Not Given ACHS [facility] Protocol Insulin Detemir 10 units 09/03/17 22:00 09/04/17 23:25 Levemir Vial SQ 10 units HS [facility] Administration Insulin Detemir 5 units 09/04/17 07:00 09/05/17 06:30 Levemir Vial SQ 5 units AM [facility] Administration Metoprolol Succinate 50 mg 09/04/17 10:00 09/05/17 10:31 Toprol Xl - PO 50 mg DAILY [facility] Administration Morphine Sulfate 2 mg 09/03/17 18:26 09/05/17 04:34 Morphine Injection - IVPUSH 2 mg Q4H PRN Administration PAIN Oxycodone HCl 5 mg 09/03/17 18:26 Roxicodone - PO Q6H PRN PAIN Polyethylene Glycol 17 gm 09/05/17 13:30 09/05/17 14:34 Miralax (For Daily Use) - PO 17 gm DAILY [facility] Administration 09/03/17 20:43 Urine Protein Negative Urine Blood Negative Impression 1. CKD 2. urinary retention 3. rhabdo 4. s/p fall 5. DM 6. HTN 7. chol 8. lactic acidosis Plan - renal function is improving - called and discussed care with pts PMD, Dr Willard. His last creatinine as outpt was 1.7 - will check lisbeth and spep - repeat labs in am - cont fluids - urology eval for retention - check cpk daily - kidney appear echogenic on ultrasound - would not restart metformin Dr Shelton
[2017-09-05] MEDS: FLUTICASONE PROP 0.05% 16 GM NASAL SPRAY NS SCH (16:15)
[2017-09-05] MEDS: SODIUM CHLORIDE 0.45% 1,000 ML IV SCH ×2 (16:16→21:15)
[2017-09-05] MEDS ORDERED: SODIUM CHLORIDE NASAL SPRAY 44 ML BOTTLE NS PRN (19:20)
--- NOTE | 2017-09-05 19:28 | HOSP ---
Subjective - Review of Symptoms Events since last encounter: Hospitalist Encounter Notified by primary RN, that the patient reports difficulty breathing secondary to nasal congestion. Arrived to bedside, patient is AAOx3, on humidified O2. Lung nugent clear bilaterally, VS. Patient in no acute resp distress Plan: [place] to nares prn Incentive Spirometry Will continue to monitor HEENT: Yes: Sinus Congestion Pulmonary: Yes: Dyspnea Physical Examination Vital Signs: Vital Signs Temperature 99.4 F 09/05/17 16:09 Pulse Rate 98 H 09/05/17 16:09 Respiratory Rate 20 09/05/17 16:09 Blood Pressure 137/65 09/05/17 16:09 O2 Sat by Pulse Oximetry (%) 90 L 09/05/17 09:00 Constitutional: Yes: Anxious Eyes: Yes: Other (eccyhmotic bruising to L- orbit) HENT: Yes: WNL, Atraumatic, Normocephalic, Nasal Congestion Neck: Yes: WNL, Supple, Trachea Midline Cardiovascular: Yes: WNL, Regular Rate and Rhythm, S1, S2 Respiratory: Yes: CTA Bilaterally, On Nasal O2 Breast(s): Yes: WNL Extremities: Yes: WNL Edema: No Peripheral Pulses WNL: Yes Integumentary: Yes: Bruising (L- orbit) Neurological: Yes: WNL, Alert, Oriented, Cran Nerves II-XII Intact ...Motor Strength: WNL Psychiatric: Yes: WNL, Alert, Oriented Labs: CBC, BMP 09/05/17 07:00 09/05/17 07:00
[2017-09-05] MEDS: CARBAMIDE PEROXIDE 6.5% OTIC 15 ML BOTTLE AD SCH ×2 (19:59→21:16)
[2017-09-05] MEDS ORDERED: RANITIDINE HCL 150 MG TABLET (FP) PO ONE (20:15)
[2017-09-05] MEDS ORDERED: PT OWN MED DRAWER 7, Y5N ONE (20:56)
[2017-09-05] MEDS: ATORVASTATIN CA 40 MG TABLET (FP) PO SCH (21:13)
--- NOTE | 2017-09-05 22:04 | EKG ---
Test Reason : Blood Pressure : / mmHG Vent. Rate : 068 BPM Atrial Rate : 068 BPM P-R Int : 200 ms QRS Dur : 138 ms QT Int : 438 ms P-R-T Axes : 057 013 -06 degrees QTc Int : 465 ms NORMAL SINUS RHYTHM RIGHT BUNDLE BRANCH BLOCK ABNORMAL ECG NO PREVIOUS ECGS AVAILABLE Confirmed by SHIKHA ARANA MD ([id number]) on 09/05/2017 10:03:47 PM Referred By: Confirmed By:SHIKHA ARANA MD
[2017-09-06] MEDS: HEPARIN NA (PORCINE) 5,000 UNITS/ML 1ML VIAL SQ SCH ×2 (06:19→14:04)
[2017-09-06] MEDS: INSULIN SLIDING SCALE (NOVOLOG) 1 VIAL SQ SCH ×2 (06:19→14:04)
[2017-09-06] MEDS: INSULIN DETEMIR 100 UNITS/ML MDV SQ SCH (06:19)
[2017-09-06] MEDS: morphine CARPU-JECT 10 MG/1 ML DISP.SYRIN IVPUSH PRN (07:57)
[2017-09-06 08:26] LABS: BASO % 0.8 % (0-2.0); EOS % 11.9 % (0-4.5); HEMATOCRIT 31.1 % (35.4-49); LYMPH % 7.1 % (8-40); MCH 29.1 pg (25.7-33.7); MCHC 32.2 g/dl (32.0-35.9); MEAN CELL VOLUME 90.4 fl (80-96); MEAN PLT VOLUME 8.6 fl (7.5-11.1); MONO % 8.7 % (3.8-10.2); NEUT % 71.5 % (42.8-82.8); PLATELET COUNT 124 K/MM3 (134-434); RBC 3.44 M/mm3 (4.00-5.60); RDW 13.7 % (11.9-15.9); WHITE BLOOD COUNT 10.3 K/mm3 (4.0-10.0)
[2017-09-06 08:46] LABS: ANION GAP 12 (8-16); BLOOD UREA NITROGEN 42 mg/dL (7-18); CALCIUM 7.8 mg/dL (8.5-10.1); CHLORIDE 107 mmol/L (98-107); CO2 20 mmol/L (21-32); CREATININE 2.3 mg/dL (0.7-1.3); GLUCOSE,RANDOM 106 mg/dL (74-106); POTASSIUM 4.2 mmol/L (3.5-5.1); SODIUM 139 mmol/L (136-145)
[2017-09-06] MEDS ORDERED: PT OWN MED DRAWER 7, Y5N ONE (09:21)
[2017-09-06] MEDS: POLYETHYLENE GLYCOL 3350 119 GM BTL PO SCH (10:43)
[2017-09-06] MEDS: FLUTICASONE PROP 0.05% 16 GM NASAL SPRAY NS SCH (10:43)
[2017-09-06] MEDS: amLODIPine BESYLATE 5 MG TABLET (FP) PO SCH (10:43)
[2017-09-06] MEDS: METOPROLOL SUCCINATE 50 MG TAB.SR.24H (FP) PO SCH (10:43)
[2017-09-06] MEDS: CARBAMIDE PEROXIDE 6.5% OTIC 15 ML BOTTLE AD SCH (11:00)
--- NOTE | 2017-09-06 13:26 | PN ---
Progress Note (short form) - Note Progress Note: recommend discharging with mijares in place. full note to follow
--- NOTE | 2017-09-06 14:04 | DS ---
Physical Exam: SUBJECTIVE: Patient seen and examined. No acute changes overnight. OBJECTIVE: Vital Signs Period Temp Pulse Resp BP Sys/Partida Pulse Ox Last 24 Hr 98.2 F-99.4 F 70-98 18-20 105-137/62-78 92-94 PE Neuro: alert, awake, cn 2-12 intact HEENT: L orbital hematoma, ecchymosis - improving Pulm: CTAB CV: s1 s2 rrr no mrg Abd: s nt nd + bs Ext: L hand swelling, palm hematoma- improving Msk: pelvic tenderness Laboratory Results - last 24 hr 09/06/17 09/06/17 07:00 07:00 WBC 10.3 H RBC 3.44 L Hgb 10.0 L Hct 31.1 L MCV 90.4 MCH 29.1 MCHC 32.2 RDW 13.7 Plt Count 124 L MPV 8.6 Neutrophils % 71.5 Lymphocytes % 7.1 L Monocytes % 8.7 Eosinophils % 11.9 H D Basophils % 0.8 Sodium 139 Potassium 4.2 Chloride 107 Carbon Dioxide 20 L Anion Gap 12 BUN 42 H Creatinine 2.3 H POC Glucometer Random Glucose 106 Calcium 7.8 L Creatine Kinase 321 H Creatine Kinase Index 0.6 CK-MB (CK-2) 2.124 HOSPITAL COURSE: Date of Admission:09/03/17 Date of Discharge: 09/06/17 Minutes to complete discharge: 37 Discharge Summary Reason For Visit: FRACTURE OF PELVIS Current Active Problems BACILIO (acute kidney injury) (Acute) CKD (chronic kidney disease) (Acute) Diabetes (Acute) HLD (hyperlipidemia) (Acute) HTN (hypertension) (Acute) Pelvic fracture (Acute) Hospital Course: Initial Hospital Course: Briefly, this 87 year old male with HTN, HLD, DM, diabetic nephropathy presented to the ED following mechanical fall. Pt lost balance as he was walking up the stairs from his basement and landed backward on his left side. He did hit his L eye sustaining hematoma and swelling, and lacerations. He did not sustain any orbital fractures nor has an visual disturbances. PT was unable to get up due to left hip pain and called 911. Subsequent Hospital Course/Progress Note/DC summary: Assessment: 87 year old male with HTN, HLD, DM II admitted s/p mechanical fall Plan: 1. Left pelvic ramus and sacral fracture - Partial WBAT - SNF for rehab - PT daily - Follow up with orthopedic surgeon when completed rehab (referral enclosed) 2. Urinary retention - Seen by urology, will maintain mijares until discharge from rehab and follow up in office - Denise and change mijares 1/month 2. BACILIO on CKD - Appears pre renal - Resume losartan - Hold lasix for 3 days, reassess and resume pending volume status and repeat labs - Do not restart metformin - Follow up with [employer]sperson when complete rehab for follow up on renal work up labs, referral enclosed 3. Lactic acidosis - Resolved 4. Leukocytosis - Down trended 5. HTN - Continue metoprolol, norvasc, losartan - Hold lasix 3 more days, see above 6. HLD - Statin - ASA 7. DM II - Resume home lantus regimen - ISS, BGM ACHS - Discontinue metformin 8. DVT ppx - Heparin sq TID 9. Rhabdomyolysis - CPK downtrended - Encourage PO fluids Dispo: - Transfer to SNF [facility] and referral information enclosed Condition: Stable - Instructions Diet, Activity, Other Instructions: Please return to the ED for any new, persistent, or worsening symptoms. Follow up with your PCP after rehab Discontinue taking metformin from this point forward, given worsening chronic kidney disease Resume home medications as listed on discharge home medications list Hold lasix for 3 days and reassess, resume pending assessment and recheck renal function Leave Mijares in place, change mijares 1 every month Follow up with Urology and Nephrology when discharged from rehab (referral information enclosed) Follow up with orthopedic surgeon when discharged from rehab for follow up ( referral information enclosed) Referrals: Cuong Porter MD [Staff Physician] - STAFF,NOT ON [Primary Care Provider] - (Dr. Greene ) Marquis Palafox MD [Staff Physician] - (Follow up after discharged from rehab ) Keke Quinteros MD [Staff Physician] - (Follow up when discharged from rehab ) Disposition: [facility] - Home Medications Comprehensive Discharge Medication List: Ambulatory Orders Amlodipine Besylate 5 mg PO BID 09/03/17 Aspirin 81 mg PO DAILY 09/03/17 Atorvastatin Ca [Lipitor] 40 mg PO HS 09/03/17 Insulin Glargine,Hum.rec.anlog [Lantus] 10 units SQ BID 09/03/17 Losartan Potassium 50 mg PO BID 09/03/17 Metoprolol Succinate 50 mg PO DAILY 09/03/17 Acetaminophen [Tylenol .Regular Strength -] 650 mg PO Q4H PRN tablet 09/06/17 Furosemide 20 mg PO BID #30 tablet 09/06/17 Heparin - 5,000 unit SQ TID vial 09/06/17 Morphine Injection - [Morphine 10 mg/1 mL Injection -] 2 mg IVPUSH Q4H PRN disp.syrin MDD 6 09/06/17 Oxycodone HCl [Roxicodone -] 5 mg PO Q6H PRN tablet MDD 4 09/06/17 Polyethylene Glycol 3350 [Miralax 119 gm Btl -] 17 gm PO DAILY bottle 09/06/17 Problem List - Problems (1) CKD (chronic kidney disease) Code(s): N18.9 - CHRONIC KIDNEY DISEASE, UNSPECIFIED (2) BACILIO (acute kidney injury) Code(s): N17.9 - ACUTE KIDNEY FAILURE, UNSPECIFIED (3) HTN (hypertension) Code(s): I10 - ESSENTIAL (PRIMARY) HYPERTENSION (4) HLD (hyperlipidemia) Code(s): E78.5 - HYPERLIPIDEMIA, UNSPECIFIED (5) Diabetes Code(s): E11.9 - TYPE 2 DIABETES MELLITUS WITHOUT COMPLICATIONS (6) Pelvic fracture Code(s): S32.9XXA - FRACTURE OF UNSP PARTS OF LUMBOSACRAL SPINE AND PELVIS, INIT This patient is new to me today: No Emergency Visit: Yes ED Registration Date: 09/03/17 Care time: The patient presented to the Emergency Department on the above date and was hospitalized for further evaluation of their emergent condition. Critical Care patient: No - Discharge Referral Referred to [facility] No
--- NOTE | 2017-09-06 14:10 | PN ---
Progress Note, Physician History of Present Illness: Pt seen and examined at bedside. He is awake and alert. He denies shortness of breath. He tolerated fluids. Pt wants to go to rehab today. - Current Medication List Current Medications: Active Medications Acetaminophen (Tylenol -) 650 mg PO Q4H PRN PRN Reason: FEVER OR PAIN Amlodipine Besylate (Norvasc -) 5 mg PO BID [facility] Last Admin: 09/06/17 10:43 Dose: 5 mg Atorvastatin Calcium (Lipitor -) 40 mg PO HS [facility] Last Admin: 09/05/17 21:13 Dose: 40 mg Carbamide Perox/Anhydrous Glycerin (Debrox -) 5 drop AD BID [facility] Last Admin: 09/06/17 11:00 Dose: Not Given Fluticasone Propionate (Flonase -) 1 spray NS DAILY [facility] Last Admin: 09/06/17 10:43 Dose: Not Given Heparin Sodium (Porcine) (Heparin -) 5,000 unit SQ TID [facility] Last Admin: 09/06/17 06:19 Dose: 5,000 unit Sodium Chloride (1/2 Normal Saline) 1,000 mls @ 50 mls/hr IV ASDIR [facility] Last Admin: 09/05/17 21:15 Dose: Not Given Insulin Aspart (Novolog Vial Sliding Scale -) 1 vial SQ ACHS [facility] PRN Reason: Protocol Last Admin: 09/06/17 06:19 Dose: 4 units Insulin Detemir (Levemir Vial) 10 units SQ HS [facility] Last Admin: 09/05/17 21:13 Dose: 10 units Insulin Detemir (Levemir Vial) 5 units SQ AM [facility] Last Admin: 09/06/17 06:19 Dose: 5 units Metoprolol Succinate (Toprol Xl -) 50 mg PO DAILY [facility] Last Admin: 09/06/17 10:43 Dose: 50 mg Morphine Sulfate (Morphine Injection -) 2 mg IVPUSH Q4H PRN PRN Reason: PAIN Last Admin: 09/06/17 07:57 Dose: 2 mg Oxycodone HCl (Roxicodone -) 5 mg PO Q6H PRN PRN Reason: PAIN Polyethylene Glycol (Miralax (For Daily Use) -) 17 gm PO DAILY [facility] Last Admin: 09/06/17 10:43 Dose: 17 gm Sodium Chloride ([place] Ingalls Nasal Ingalls -) 2 spray NS TID PRN PRN Reason: NASAL CONGESTION Last Admin: 09/05/17 19:59 Dose: 2 sprays - Objective Vital Signs: Vital Signs Temperature 98.9 F 09/06/17 08:00 Pulse Rate 82 09/06/17 08:00 Respiratory Rate 18 09/06/17 08:00 Blood Pressure 118/62 09/06/17 08:00 O2 Sat by Pulse Oximetry (%) 94 L 09/06/17 09:00 Constitutional: Yes: Calm Neck: Yes: Supple Cardiovascular: Yes: S1, S2 Respiratory: Yes: Regular, CTA Bilaterally Gastrointestinal: Yes: Normal Bowel Sounds, Soft Genitourinary: Yes: Oliver Present Musculoskeletal: Yes: Back Pain Edema: No Neurological: Yes: Oriented Psychiatric: Yes: Oriented Labs: CBC, BMP 09/06/17 07:00 09/06/17 07:00 INR, PTT INR 1.08 (0.82-1.09) 09/03/17 14:30 Problem List - Problems (1) CKD (chronic kidney disease) Code(s): N18.9 - CHRONIC KIDNEY DISEASE, UNSPECIFIED (2) Diabetes Code(s): E11.9 - TYPE 2 DIABETES MELLITUS WITHOUT COMPLICATIONS (3) HLD (hyperlipidemia) Code(s): E78.5 - HYPERLIPIDEMIA, UNSPECIFIED (4) HTN (hypertension) Code(s): I10 - ESSENTIAL (PRIMARY) HYPERTENSION (5) Pelvic fracture Code(s): S32.9XXA - FRACTURE OF UNSP PARTS OF LUMBOSACRAL SPINE AND PELVIS, INIT Assessment/Plan Current Medications Generic Name Dose Route Start Last Admin Trade Name Freq PRN Reason Stop Dose Admin Acetaminophen 650 mg 09/03/17 18:26 Tylenol - PO Q4H PRN FEVER OR PAIN Amlodipine Besylate 5 mg 09/03/17 22:00 09/06/17 10:43 Norvasc - PO 5 mg BID [facility] Administration Atorvastatin Calcium 40 mg 09/03/17 22:00 09/05/17 21:13 Lipitor - PO 40 mg HS [facility] Administration Carbamide Perox/Anhydrous Glycerin 5 drop 09/05/17 16:30 09/06/17 11:00 Debrox - AD Not Given BID [facility] Fluticasone Propionate 1 spray 09/05/17 13:30 09/06/17 10:43 Flonase - NS Not Given DAILY [facility] Heparin Sodium (Porcine) 5,000 unit 09/04/17 22:00 09/06/17 06:19 Heparin - SQ 5,000 unit TID [facility] Administration Sodium Chloride 1,000 mls @ 50 mls/hr 09/04/17 18:35 09/05/17 21:15 1/2 Normal Saline IV Not Given ASDIR [facility] Insulin Aspart 1 vial 09/04/17 11:18 09/06/17 06:19 Novolog Vial Sliding Scale - SQ 4 units ACHS [facility] Administration Protocol Insulin Detemir 10 units 09/03/17 22:00 09/05/17 21:13 Levemir Vial SQ 10 units HS [facility] Administration Insulin Detemir 5 units 09/04/17 07:00 09/06/17 06:19 Levemir Vial SQ 5 units AM [facility] Administration Metoprolol Succinate 50 mg 09/04/17 10:00 09/06/17 10:43 Toprol Xl - PO 50 mg DAILY [facility] Administration Morphine Sulfate 2 mg 09/03/17 18:26 09/06/17 07:57 Morphine Injection - IVPUSH 2 mg Q4H PRN Administration PAIN Oxycodone HCl 5 mg 09/03/17 18:26 Roxicodone - PO Q6H PRN PAIN Polyethylene Glycol 17 gm 09/05/17 13:30 09/06/17 10:43 Miralax (For Daily Use) - PO 17 gm DAILY [facility] Administration Sodium Chloride 2 spray 09/05/17 19:20 09/05/17 19:59 [place] Ingalls Nasal Ingalls - NS 2 sprays TID PRN Administration NASAL CONGESTION Laboratory Tests 09/06/17 09/06/17 07:00 07:00 Creatine Kinase 321 H LYNSEY M-Brett Pending LISBETH Screen Pending Impression 1. CKD 2. urinary retention 3. rhabdo 4. s/p fall 5. DM 6. HTN 7. chol 8. lactic acidosis Plan - creatinine continues to improve - urology input appreciated - recommend holding lasix and assessing volume status in rehab - outpt disk operator was about 1.7 - cpk is improving - lisbeth and spep should be followed up - kidney appear echogenic on ultrasound - would not restart metformin with this level of renal dysfunction - will need to monitor renal function in rehab - plan and recommendations discussed in detail with pt and he understands Dr Shelton
[2017-09-06 15:03] VITALS: PULSE 85
--- NOTE | 2017-09-06 15:49 | CON.GU ---
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 He denies any syncope. He was noted to be unable to urinate. A mijares cath was placed with 500ml residual. He reports that he had an open suprapubic prostatectomy about 10 years ago at [facility]. He was voiding well prior to the fall and is not on any medications for BPH. He has been unable to stand to urinate since admission because of the fracture and has been very constipated. - History Source History Provided By: Patient Limitations to Obtaining History: No Limitations - Past Medical History Cardio/Vascular: Yes: HTN, Hyperlipdemia Renal/: Yes: Renal Inusuff, BPH Endocrine: Yes: Diabetes Mellitus - Past Surgical History Past Surgical History: Yes: Laminectomy (x4, 4 years ago), Prostatectomy (10-12 years ago) - Alcohol/Substance Use Hx Alcohol Use: No - Smoking History Smoking history: Former smoker Have you smoked in the past 12 months: No If you are a former smoker, when did you quit?: 40 YEARS AGO - Social History ADL: Independent Occupation: semi retired doctor History of Recent Travel: No Home Medications - Allergies Allergies/Adverse Reactions: Allergies Allergy/AdvReac Type Severity Reaction Status Date / Time ciprofloxacin [From Cipro] Allergy Severe Swelling Verified 09/03/17 14:00 sulfamethoxazole Allergy Severe Swelling Verified 09/03/17 14:00 [From Bactrim] trimethoprim [From Bactrim] Allergy Severe Swelling Verified 09/03/17 14:00 - Home Medications Home Medications: Ambulatory Orders Amlodipine Besylate 5 mg PO BID 09/03/17 Aspirin 81 mg PO DAILY 09/03/17 Atorvastatin Ca [Lipitor] 40 mg PO HS 09/03/17 Insulin Glargine,Hum.rec.anlog [Lantus] 10 units SQ BID 09/03/17 Losartan Potassium 50 mg PO BID 09/03/17 Metoprolol Succinate 50 mg PO DAILY 09/03/17 Acetaminophen [Tylenol .Regular Strength -] 650 mg PO Q4H PRN tablet 09/06/17 Fluticasone Prop 0.05% Nasal [Flonase -] 1 spray NS DAILY spray 09/06/17 Furosemide 20 mg PO BID #30 tablet 09/06/17 Heparin - 5,000 unit SQ TID vial 09/06/17 Morphine Injection - [Morphine 10 mg/1 mL Injection -] 2 mg IVPUSH Q4H PRN disp.syrin MDD 6 09/06/17 Oxycodone HCl [Roxicodone -] 5 mg PO Q6H PRN tablet MDD 4 09/06/17 Polyethylene Glycol 3350 [Miralax 119 gm Btl -] 17 gm PO DAILY bottle 09/06/17 Review of Systems - Review of Systems Gastrointestinal: reports: Constipation Genitourinary: reports: Frequency Physical Exam- Vital Signs: Vital Signs Temperature 99.9 F H 09/06/17 15:02 Pulse Rate 85 09/06/17 15:02 Respiratory Rate 18 09/06/17 08:00 Blood Pressure 140/75 09/06/17 15:02 O2 Sat by Pulse Oximetry (%) 94 L 09/06/17 09:00 Gastrointestinal: Yes: Soft Renal/: Yes: Mijares Present. No: Bladder Distention, CVA Tenderness - Left, CVA Tenderness - Right, Hematuria Labs: CBC, BMP 09/06/17 07:00 09/06/17 07:00 Problem List - Problems (1) Urinary retention Assessment/Plan: Patient is in retention likely secondary to a number of factors including diabetic neuropathy, severe constipation and inabitlity to stand and narcotics. Offered to remove the catheter but the patient is concerned that he will not be able to void which will affect his rehab. Maintain the mijares for now until patient is ambulatory and when his constipation is treated. Follow up in office [phone] Code(s): R33.9 - RETENTION OF URINE, UNSPECIFIED
[2017-09-06 16:23] VITALS: BP 123/64; TEMP 99.1
== END 2017-09-06 16:30 | DRG 552 ==
LOC: JER 13:35 → JERBED 18:18 → J6S 21:21
PROVIDERS: ADMIT Hospitalist; ATTEND Nurse Practitioner Acute Care
DX: S32.19XA Other fracture of sacrum, initial encounter for closed fracture (principal); S32.810A Multiple fractures of pelvis with stable disruption of pelvic ring, initial encounter for closed fracture; N17.8 Other acute kidney failure; M62.82 Rhabdomyolysis; E87.2 Acidosis; S60.222A Contusion of left hand, initial encounter; D72.828 Other elevated white blood cell count; K59.09 Other constipation; S01.112A Laceration without foreign body of left eyelid and periocular area, initial encounter; H57.8 Other specified disorders of eye and adnexa; R33.9 Retention of urine, unspecified; E78.5 Hyperlipidemia, unspecified; E11.21 Type 2 diabetes mellitus with diabetic nephropathy; I12.9 Hypertensive chronic kidney disease with stage 1 through stage 4 chronic kidney disease, or unspecified chronic kidney disease; E11.22 Type 2 diabetes mellitus with diabetic chronic kidney disease; N18.9 Chronic kidney disease, unspecified; Z87.891 Personal history of nicotine dependence; W17.89XA Other fall from one level to another, initial encounter; Y92.098 Other place in other non-institutional residence as the place of occurrence of the external cause
CPT/HCPCS: 36415; 70450-TC; 70486-TC; 71045-TC; 71101-TC; 72125-TC; 72192-TC; 73110-TC-LT; 73130-TC-LT; 73523-TC; 76775-TC; 76856-TC; 80048; 80053; 81003; 82436; 82550; 82553; 82570; 82962; 83605; 83735; 84100; 84133; 84155; 84165; 84300; 84484; 84540; 85025; 85027; 85610; 86038; 86850; 86900; 86901; 87040; 87086; 93005; 93010; 94010; 97161-GP; 99285-25; J1644

== ENCOUNTER 2021-02-22 15:31 | Emergency (ER) | payer OTHER ==
[2021-02-22 15:59] VITALS: TEMP 98.4; BMI 24.2
[2021-02-22 17:54] LABS: CHLORIDE 92 mmol/L (98-107); SODIUM 129 mmol/L (136-145)
[2021-02-22 17:56] LABS: BASO % 0.8 % (0-2.0); CALCIUM 9.8 mg/dL (8.5-10.1); HEMATOCRIT 44.6 % (35.4-49); HEMOGLOBIN 14.7 GM/dL (11.7-16.9); MCHC 33.1 g/dl (32.0-35.9); MEAN CELL VOLUME 87.8 fl (80-96); MEAN PLT VOLUME 9.1 fl (7.5-11.1); MONO % 10.8 % (3.8-10.2); NEUT % 69.4 % (42.8-82.8); PLATELET COUNT 183 10^3/uL (134-434); RBC 5.08 M/mm3 (4.00-5.60); RDW 14.2 % (11.9-15.9); WHITE BLOOD COUNT 8.1 K/mm3 (4.0-10.0)
[2021-02-22 17:57] LABS: ALBUMIN 4.2 g/dl (3.4-5.0); ANION GAP 11 MMOL/L (8-16); BLOOD UREA NITROGEN 62.3 mg/dL (7-18); CO2 26 mmol/L (21-32); GLUCOSE,RANDOM 109 mg/dL (74-106); MAGNESIUM 2.6 mg/dL (1.8-2.4)
[2021-02-22 18:00] LABS: CREATININE 2.9 mg/dL (0.55-1.3); SGOT/AST 20 U/L (15-37); SGPT/ALT 32 U/L (13-61)
[2021-02-22 18:01] LABS: BILIRUBIN,TOTAL 0.6 mg/dL (0.2-1); TOT PROT 6.7 g/dl (6.4-8.2)
[2021-02-22 18:03] LABS: ALK PHOS 78 U/L (45-117)
[2021-02-22 19:16] VITALS: BP 145/98; PULSE 72
== END 2021-02-22 19:16 | disposition home or self-care (01) ==
LOC: JER 15:31
DX: R00.1 Bradycardia, unspecified (principal)
CPT/HCPCS: 36415; 71045-TC-FY; 80053; 82550; 82553; 83735; 83880; 84443; 84484; 85025; 93005; 93010; 99285-25